=== PATIENT | female | born 1980 | race Caucasian/White ===

== ENCOUNTER 2018-09-18 01:09 | Emergency (ER) | payer MEDICAID ==
[~2018-09-18] VITALS: Ht 162.6 cm; Wt 136.5 kg
[~2018-09-18 01:09] MED LIST: ACET500C5 PO; AZIT250T PO; D-ME118S6 PO; FER325 PO; HYDR-3980 PO; IBUP-1542 PO; IBUP800T48 PO; PREN1TAB17 PO; PRENAT PO
[2018-09-18 01:14] VITALS: Ht 162.6 cm; Wt 136.5 kg
[2018-09-18] MEDS ORDERED: morphine 4 MG/ML VIAL IV STA ×2 (01:49→02:32)
[2018-09-18] MEDS ORDERED: ONDANSETRON 4 MG INJ IV STA (01:49)
[2018-09-18] MEDS ORDERED: SOD CHLORIDE 0.9% 1,000 ML IV STA (01:49)
--- NOTE | 2018-09-18 01:54 | ERD ---
ER Documentation Chief Complaint Chief Complaint RUQ AP since 8PM w/ n/v. no diarrhea/fever HPI 38-year-old female presents here to emergency department for complaints of right upper quadrant abdominal pain that started at 8 PM tonight, accompanied with vomiting, complains of pain, sharp pain, 6/10 scale, not better or worse with a nything. Patient denies any hematuria or dysuria. Patient denies any diarrhea constipation. Patient did not take any medication for pain. ROS All systems reviewed and are negative except as per history of present illness. Medications Home Meds Active Scripts Acetaminophen* (Tylophen*) 500 Mg Capsule, 2 CAP PO Q8H PRN for PAIN AND OR ELEVATED TEMP, #30 CAP Prov:SHAKA SONI PA-C 08/21/16 Ibuprofen* (Motrin*) 800 Mg Tab, 800 MG PO Q6, #30 TAB Prov:SHAKA SONI PA-C 08/21/16 Hydrocodone/Acetaminophen (Dilley 10-325 Tablet) 1 Each Tablet, 1 TAB PO Q6H PRN for PAIN, #20 TAB Prov:SHAKA SONI PA-C 08/21/16 Dextromethorphan Hb-Promethazine Hcl (Promethazine DM Syrup) 180 Ml Syrup, 5 ML PO Q6H PRN for COUGH, #4 OZ Prov:PETER NAVARRETE MD 12/05/15 Ibuprofen* (Motrin*) 600 Mg Tab, 600 MG PO Q6, #14 TAB Prov:PETER NAVARRETE MD 12/05/15 Azithromycin* (Zithromax*) 250 Mg Tablet, 250 MG PO .ZPACK DIRECTED, #6 TAB TAKE 500 MG (2 TABS) THE FIRST DAY THEN 250 MG (1 TAB) DAYS 2-5 Prov:PETER NAVARRETE MD 12/05/15 Reported Medications Multivit/Min/Fol Ac/Iron/Pren* ( S*) 1 Tab Tab, 1 TAB PO DAILY, TAB 03/30/14 Ferrous Sulfate* (Ferrous Sulfate*) 325 Mg Tabec, 325 MG PO DAILY, TAB 03/26/14 Vit-Iron Fumarate-FA ( Tablet) 1 Each Tablet, 1 EACH PO 04/24/13 Allergies Allergies: Coded Allergies: No Known Allergies (Verified Allergy, Unknown, 03/02/14) PMhx/Soc History of Surgery: Yes (C SECTION ) Hx Neurological Disorder: No Hx Respiratory Disorders: No Hx Cardiac Disorders: No Hx Psychiatric Problems: No Hx Miscellaneous Medical Probl: No Hx Alcohol Use: No Hx Substance Use: No Hx Tobacco Use: No FmHx Family History: No diabetes, No coronary disease, No other Physical Exam Vitals Vital Signs Date Temp Pulse Resp B/P (MAP) Pulse Ox O2 O2 Flow FiO2 Time Delivery Rate 09/18/18 98.6 63 16 160/74 98 01:14 (102) Physical Exam GENERAL: The patient is well developed and appropriate for usual state of health, in no apparent distress. CHEST: Clear to auscultation bilaterally. There are no rales, wheezes or rhonchi. HEART: Regular rate and rhythm. No murmurs, clicks, rubs or gallops. No S3 or S4. ABDOMEN: Soft, nontender and nondistended. Good bowel sounds. No rebound or guarding. No gross peritonitis. No gross organomegaly or masses. No Haywood sign or McBurney point tenderness. BACK: No midline or flank tenderness. EXTREMITIES: Equal pulses bilaterally. There is no peripheral clubbing, cyanosis or edema. No focal swelling or erythema. Full range of motion. Grossly neurovascularly intact. NEURO: Alert and oriented. Cranial nerves 2-12 intact. Motor strength in all 4 extremities with 5/5 strength. Sensation grossly intact. Normal speech and gait. SKIN: There is no apparent rash or petechia. The skin is warm and dry. HEMATOLOGIC AND LYMPHATIC: There is no evidence of excessive bruising or lymphedema. No gross cervical, axillary, or inguinal lymphadenopathy. Result Diagram: 09/18/18 0201 09/18/18 0201 Results 24 hrs Laboratory Tests Test 09/18/18 02:01 White Blood Count 7.6 10^3/ul Red Blood Count 4.36 10^6/ul Hemoglobin 12.6 g/dl Hematocrit 38.5 % Mean Corpuscular Volume 88.3 fl Mean Corpuscular Hemoglobin 28.9 pg Mean Corpuscular Hemoglobin Concent 32.7 g/dl Red Cell Distribution Width 13.2 % Platelet Count 176 10^3/UL Mean Platelet Volume 12.6 fl Immature Granulocytes % 0.300 % Neutrophils % 72.4 % Lymphocytes % 18.4 % Monocytes % 7.6 % Eosinophils % 1.0 % Basophils % 0.3 % Nucleated Red Blood Cells % 0.0 /100WBC Immature Granulocytes # 0.020 10^3/ul Neutrophils # 5.5 10^3/ul Lymphocytes # 1.4 10^3/ul Monocytes # 0.6 10^3/ul Eosinophils # 0.1 10^3/ul Basophils # 0.0 10^3/ul Nucleated Red Blood Cells # 0.0 10^3/ul Urine Color YELLOW Urine Clarity SLIGHTLY CLOUDY Urine pH 6.0 Urine Specific [place] 1.023 Urine Ketones NEGATIVE mg/dL Urine Nitrite NEGATIVE mg/dL Urine Bilirubin NEGATIVE mg/dL Urine Urobilinogen NEGATIVE mg/dL Urine Leukocyte Esterase 1+ Mariam/ul Urine Microscopic RBC > 182 /HPF Urine Microscopic WBC 0 /HPF Urine Hemoglobin 3+ mg/dL Urine Glucose NEGATIVE mg/dL Urine Total Protein 1+ mg/dl Sodium Level 143 mmol/L Potassium Level 3.7 mmol/L Chloride Level 106 mmol/L Carbon Dioxide Level 27 mmol/L Anion Gap 10 Blood Urea Nitrogen 15 mg/dl Creatinine 0.68 mg/dl Est Glomerular Filtrat Rate mL/min > 60 mL/min Glucose Level 115 mg/dl Calcium Level 8.9 mg/dl Total Bilirubin 0.1 mg/dl Direct Bilirubin 0.00 mg/dl Indirect Bilirubin 0.1 mg/dl Aspartate Amino Transf (AST/SGOT) 32 IU/L Alanine Aminotransferase (ALT/SGPT) 33 IU/L Alkaline Phosphatase 80 IU/L Total Protein 7.0 g/dl Albumin 4.1 g/dl Globulin 2.90 g/dl Albumin/Globulin Ratio 1.41 Lipase 135 U/L Current Medications Medications Dose Sig/Bryan Start Time Status Last (Trade) Ordered Route PRN Stop Time Admin Dose Reason Admin Sodium 1,000 ml @ Q1H STAT 09/18/18 DC 09/18/18 Chloride 1,000 mls/hr IV 01:49 09/18/18 02:06 02:48 Morphine 4 mg ONCE STAT 09/18/18 DC 09/18/18 Sulfate IV 01:49 09/18/18 02:06 (morphine) 01:50 Ondansetron 4 mg ONCE STAT 09/18/18 DC 09/18/18 HCl (Zofran IV 01:49 09/18/18 02:06 Inj) 01:50 Morphine 4 mg ONCE STAT 09/18/18 DC 09/18/18 Sulfate IV 02:32 09/18/18 02:37 (morphine) 02:33 Patient was given medication for pain here in emergency department, after treatment, patient verbalized feeling much better. Patient's pain is improved. Normal saline IV bolus was given here in emergency department for rehydration, patient tolerated IV fluids. PROCEDURE: Ultrasound right upper quadrant CLINICAL INDICATION: Pain. TECHNIQUE: Sonographic imaging of the right upper quadrant was performed with grayscale and color Doppler techniques. COMPARISON: CT abdomen and pelvis dated August 21, 2016. FINDINGS: LIVER: Measures 20.9 cm in length with echogenicity suggesting fatty infiltration. GALLBLADDER: Slight debris, tiny stones, and/or sludge is noted. There is no wall thickening or pericholecystic fluid. COMMON BILE DUCT: Measures up to 3.9 cm. VISUALIZED PANCREAS: Unremarkable. RIGHT KIDNEY: Measures 12.6 cm in length without appreciated abnormality. VISUALIZED AORTA AND INFERIOR VENA CAVA: Unremarkable. IMPRESSION: 1. Hepatomegaly with suggestion of fatty infiltration. 2. Slight debris, tiny stones, and/or sludge is noted within the gallbladder without additional sonographic evidence for acute cholecystitis. RPTAT:HGST Physician Karli Date Time Electronically viewed and signed by Malini Louise Physician on 09/18/2018 02:57 GT/ CC: YOLANDE MAZA NP [id number] Procedures/MDM Medical Decision Making: Symptoms most likely consistent with biliary colic. No symptoms of an acute cholecystitis. Patient also has incidental finding of urinary tract infection. There is low suspicion for abdominal emergencies at this time. Patients abdominal exam is normal at this time. Patients radiology exam does not show any abdominal emergencies at this time. There is low suspicion for appendicitis, cholecystitis, abdominal aortic aneurysms or peritonitis at this time is most likely. There is low suspicion for sepsis. Patient appears well and is hemodynamically stable. Disposition: Home. Condition: Stable Prescription Dilley, Zofran Instructions: Patient is advised to take medications as prescribed. Patient is advised to rest, increase fluid intake and do brat diet for next 1-2 days and progress as tolerated. Patient is advised that if symptoms are worse, severe abdominal pain, uncontrolled vomiting, high fever, severe flank pain, worst signs and symptoms, to return to the emergency department immediately. Otherwise, patient can follow up with primary care doctor in 5-7 days. Disclaimer: Inadvertent spelling and grammatical errors are likely due to EHR/dictation software use and do not reflect on the overall quality of patient care. Also, please note that the electronic time recorded on this note does not necessarily reflect the actual time of the patient encounter. Departure Diagnosis: Primary Impression: Biliary colic Condition: Stable Patient Instructions: Biliary Colic With Gallstone (Confirmed) Additional Instructions: Patient is advised to take medications as prescribed. Patient is advised to rest, increase fluid intake and do brat diet for next 1-2 days and progress as tolerated. Patient is advised that if symptoms are worse, severe abdominal pain, uncontrolled vomiting, high fever, severe flank pain, worst signs and symptoms, to return to the emergency department immediately. Otherwise, patient can follow up with primary care doctor in 5-7 days. YOLANDE MAZA NP Sep 18, 2018 01:54
[2018-09-18] MEDS ORDERED: HYDR-4011 PO (03:02)
[2018-09-18] MEDS ORDERED: ONDA4TAB14 PO (03:02)
[2018-09-18 04:10] VITALS: BP 180/67; PULSE 71; RESP 18
== END 2018-09-18 04:13 | disposition home or self-care (01) ==
LOC: FTE 01:09
DX: K80.50 Calculus of bile duct without cholangitis or cholecystitis without obstruction (principal)
CPT/HCPCS: 36415; 76705; 80053; 81001; 83690; 85025; 96361; 96374; 96375; 96376; J2270; J2405; J7030; Z7502